=== PATIENT | male | born 1960 | race Caucasian/White ===

== ENCOUNTER → 2017-09-28 | Outpatient (CLI) | payer OTHER ==
[~2017-09-28] MED LIST: LISINOPRIL20 MG PO; REQUIP1 MG PO
--- NOTE | ~2017-09-28 | EKG ---
[address] [place] [address] ELECTROCARDIOGRAM REPORT Name: HAIM CEJA Room #: [facility]#: [id number] Admission: 09/28/17 Attend Phys: Yo Patton MD Discharge: Date of : 56 Report #: [id number] THIS REPORT FOR: //name// [facility] Test Date: 2017-09-28 Test Time: 12:50:08 Pat Name: HAIM CEJA Department: Room: Gender: Alarm Operator: Мария BUCKLEY : 1960 Requested By: Yo Patton Order Number: [id number] MD: Tien Ahn Measurements Intervals Mercedes Rate: 82 P: 81 SD: 142 QRS: 73 QRSD: 87 T: 62 QT: 372 QTc: 435 Interpretive Statements Sinus rhythm Right atrial enlargement Compared to ECG 03/23/2008 14:26:49 Atrial abnormality now present Sinus bradycardia no longer present Electronically Signed On 09-28-2017 16:02:02 CDT by Tien Ahn [email or web address] <ELECTRONICALLY SIGNED> By: Tien Ahn MD, [facility] 09/28/17 1602 1250 1250 Tien Ahn MD, [facility] /EPI
== END ==
LOC: LITH 12:23
DX: N20.0 Calculus of kidney (principal); I10 Essential (primary) hypertension; Z98.890 Other specified postprocedural states; Z79.899 Other long term (current) drug therapy